=== PATIENT | male | born 1970 | race Caucasian/White ===

== ENCOUNTER 2020-12-04 08:04 | Emergency (ER) | payer OTHER ==
[2020-12-04 08:10] VITALS: BP 164/98; PULSE 67; TEMP 98.2; BMI 25.8
[2020-12-04] MEDS ORDERED: DIPHTH,PERTUSS(ACELL),TET 0.5 ML DISP.SYRIN IM ONE ×2 (10:01→10:02)
== END 2020-12-04 10:16 | disposition home or self-care (01) ==
LOC: JERFT 08:04
PROC: 0HQKXZZ Repair Right Lower Leg Skin, External Approach (ICD-10-PCS; principal; 2020-12-04)
PROC: 3E0234Z Introduction of Serum, Toxoid and Vaccine into Muscle, Percutaneous Approach (ICD-10-PCS; 2020-12-04)
DX: S81.012A Laceration without foreign body, left knee, initial encounter (principal); W26.8XXA Contact with other sharp object(s), not elsewhere classified, initial encounter
CPT/HCPCS: 90715; 99284-25

== ENCOUNTER 2020-12-11 13:01 | Emergency (ER) | payer OTHER ==
[2020-12-11 13:34] VITALS: BP 138/84; PULSE 84; TEMP 97.4; BMI 25.3
== END 2020-12-11 14:29 | disposition home or self-care (01) ==
LOC: JER 13:01 → JERFT 13:01
DX: S81.812A Laceration without foreign body, left lower leg, initial encounter (principal); Y99.8 Other external cause status; Z48.02 Encounter for removal of sutures
CPT/HCPCS: 99281-25